=== PATIENT | male | born 1955 | race Two or more races ===

== ENCOUNTER 2023-01-08 08:56 | Inpatient (IN) | payer OTHER ==
[~2023-01-08] VITALS: Ht 172.7 cm; Wt 71.7 kg
[~2023-01-08 08:56] MED LIST: METFORMIN HCL500 M3 PO
[2023-01-12] MEDS ORDERED: TERBINAFINE HC250 MG (15:48)
[2023-01-12] MEDS ORDERED: TAMSULOSIN HCL0.4 MG (15:48)
[2023-01-12] MEDS ORDERED: LISINOPRIL10 MG (15:48)
[2023-01-12] MEDS ORDERED: ATORVASTATIN CA10 MG (15:48)
[2023-01-13] MEDS ORDERED: TRAM1TAB98 PO (08:06)
[2023-01-13] MEDS ORDERED: NEURONTIN300 MG PO (08:06)
[2023-01-13] MEDS ORDERED: MIRALAX17 GM PO (08:06)
[2023-01-13] MEDS ORDERED: AMOX1TAB5 PO (08:06)
== END 2023-01-14 15:30 | disposition home or self-care (01) | DRG 348 ==
LOC: EDSTATUS 08:56 → CIR.AMB 12:30 → O/R 01-12 05:45 → SURH 01-12 08:57 → SURG 01-12 13:24 → SURH 01-12 13:37
PROVIDERS: ADMIT Surgery; ATTEND Surgery
PROC: 0DBNFZZ Excision of Sigmoid Colon, Via Natural or Artificial Opening With Percutaneous Endoscopic Assistance (ICD-10-PCS; 2023-01-12)
PROC: 0DBP7ZZ Excision of Rectum, Via Natural or Artificial Opening (ICD-10-PCS; principal; 2023-01-12 10:45)
DX: C20 Malignant neoplasm of rectum (principal); K62.5 Hemorrhage of anus and rectum; D12.6 Benign neoplasm of colon, unspecified